=== PATIENT | male | born 1970 | race African-American/Black ===

== ENCOUNTER → 2017-06-24 | Outpatient (CLI) | payer OTHER ==
[2014-05-19 09:15] VITALS: BP 134/74
[~2017-06-24] MED LIST: ACYC200C PO; SIMV40TA3 PO; TRAM50TA PO
--- NOTE | 2017-06-24 09:05 | KCIC ---
MRI Lumbar Spine without contrast History: Right lumbar radiculopathy, low back pain into the right leg, numbness in the feet, previous surgery Technique: Multiplanar, multi sequential noncontrast MR imaging was performed of the lumbar spine. Contrast: None Comparison: June 16, 2014 Findings: Lumbar vertebral body stature is preserved. There is minimal posterior subluxation L3 relative L4-L5 relative S1. Conus terminates at L1-2. There are posterior and anterior annular tears L3-4, posterior annular tears L4-5 and L5-S1. There is more advanced degenerative disc disease L5-S1, minimally at L4-5 and L3-4. L3-4 degenerative disc disease is somewhat greater than previously. There is no significant marrow edema. L3-L4: There is minimal disc osteophyte complex, superimposed minimal bulge greater than previously. Neural foramina and spinal canal are overall adequate. L4-L5: There is disc osteophyte complex and superimposed shallow bulge/protrusion. There is mild indentation upon the ventral thecal sac somewhat greater in the far lateral recesses bilaterally. There is overall mild narrowing of the far lateral recess laterally, overall similar. Neural foramina are adequate. L5-S1: There is disc osteophyte complex and superimposed bulge/protrusion greatest centrally with indentation upon the ventral thecal sac, near the descending S1 nerve roots without displacement. There is also a small focus of signal abnormality in the left lateral recess above the intervertebral disc space on the order of 4 to 5 mm transverse by 3 to 4 mm AP by 5 mm CC not as apparent on the previous exam. This does not result in significant neural impingement. There is right laminectomy defect present. Neural foramina are overall adequate. Impression: 1. There is advanced degenerative disc disease at L5-S1, to a lesser degree at L4-5 and L3-4 although somewhat progressed at L3-4 since previous 2013 exam. There is mild narrowing of the far lateral recesses bilaterally at L4-5 with bulge/protrusion near the descending L5 nerve roots. Bulge/protrusion at L5-S1 is near descending S1 nerve roots without displacement. 2. There is a small focus of apparently extradural signal abnormality above the L5-S1 intervertebral disc space level in the left lateral recess without neural impingement. This may be due to a small extruded or sequestered disc fragment, considered more likely than small mass. Electronically signed by: Arsenio Deras MD (06/24/2017 9:02 AM) [facility]
== END | disposition home or self-care (01) ==
LOC: KCIC MRI 08:05
PROVIDERS: ATTEND Anesthesiology
DX: M51.17 Intervertebral disc disorders with radiculopathy, lumbosacral region (principal); M51.37 Other intervertebral disc degeneration, lumbosacral region
CPT/HCPCS: 72148

== ENCOUNTER → 2017-09-11 | Outpatient (CLI) | payer OTHER ==
[2014-05-19 09:15] VITALS: BP 134/74
[~2017-09-11] MED LIST changes: +CELE200C PO; +CYCL10TA2 PO; +FLUT9.9S NS; +IBUP-1060 PO; +OMEG1CAP6 PO; +OMEP20CA9 PO; +SIMV40TA PO; +VALA500T PO
== END | disposition home or self-care (01) ==
LOC: SURGPAT 14:17
PROVIDERS: ATTEND Neurological Surgery
DX: Z01.818 Encounter for other preprocedural examination (principal); M54.16 Radiculopathy, lumbar region; Z98.890 Other specified postprocedural states
CPT/HCPCS: 36415; 85610; 85730; 87641

== ENCOUNTER 2017-09-24 07:05 | Day surgery (SDC) | payer OTHER ==
[~2017-09-24] VITALS: Ht 185.4 cm; Wt 117.9 kg
[~2017-09-24 07:05] MED LIST changes: +BACITRACIN 50,000 UNIT in IV NORMAL SALINE 1000ML BAG 1,000 ML IRR ONE; +HYDROmorphone 2 MG/ML VIAL IV PRN; +IV RINGERS,LACTATED 1000ML 1,000 ML IV SCH; +LIDOCAINE 1% PF 2 ML VIAL. ID PRN; +MORPHINE SULFATE 4 MG/ML DISP.SYRIN. IV PRN; +ONDANSETRON PF 4 MG/2 ML VIAL. IV PRN; +PROCHLORPERAZINE 10 MG/2 ML VIAL. IV PRN; +fentaNYL PF VIAL 100 MCG/2 ML VIAL IV PRN
[2017-09-24] MEDS ORDERED: GELATIN SPONGE SIZE 100. ONE (07:47)
[2017-09-24] MEDS ORDERED: THROMBIN TOPICAL 20,000 UNIT SPRAY.SYRN KIT TP ONE (07:48)
[2017-09-24] MEDS ORDERED: LIDOCAINE 1%/EPI 1:100,000 20 ML VIAL. ONE (07:48)
[2017-09-24] MEDS ORDERED: BUPIVACAINE MPF 0.5% 30 ML VIAL. ONE (07:48)
[2017-09-24] MEDS ORDERED: PROPOFOL 100 ML IV ONE (08:01)
[2017-09-24] MEDS ORDERED: 0.9 % SODIUM CHLORIDE 50 ML VIAL. IJ ONE (08:07)
[2017-09-24] MEDS ORDERED: fentaNYL PF VIAL 100 MCG/2 ML VIAL ONE ×2 (08:07→10:37)
[2017-09-24] MEDS ORDERED: LIDOCAINE 2% PF Vial for OR 5 ML VIAL. ONE (08:07)
[2017-09-24] MEDS ORDERED: DEXAMETHASONE SOD PHOS 20 MG/5 ML VIAL. ONE (08:07)
[2017-09-24] MEDS ORDERED: PROPOFOL 20 ML IV ONE (08:07)
[2017-09-24] MEDS ORDERED: ONDANSETRON PF 4 MG/2 ML VIAL. ONE (08:07)
[2017-09-24] MEDS ORDERED: NEOSTIGMINE 10 MG/10 ML VIAL. ONE (08:07)
[2017-09-24] MEDS ORDERED: MIDAZOLAM HCL/PF 2 MG/2 ML VIAL. ONE (08:08)
[2017-09-24] MEDS ORDERED: GLYCOPYRROLATE 1 MG/5 ML VIAL. ONE (08:08)
[2017-09-24] MEDS ORDERED: ROCURONIUM 50 MG/5 ML VIAL. ONE (08:08)
[2017-09-24] MEDS ORDERED: REMIFENTANIL 2 MG VIAL. IV ONE (08:08)
[2017-09-24] MEDS ORDERED: DESFLURANE > 120 MINUTES IH ONE (08:55)
[2017-09-24] MEDS ORDERED: PHENYLEPHRINE 10 MG/ML VIAL. ONE (09:17)
--- NOTE | 2017-09-24 11:04 | PDOC ---
BRIEF OPERATIVE NOTE Date: Sep 24, 2017 Pre-Op Diagnosis lumbar disk herniation, lumbar radiculopathy Post-Op Diagnosis same Procedure Performed right L4-5 hemilaminotomy with discectomy [address] Medical Detail Representative none Anesthesia Type: General Blood Loss 25mL Specimens Obtained disk and decompression Findings prominent disk herniation right L4-5 with mass effect on the adjacent neural elements, neuromonitoring potentials improved compared to baseline at completion of procedure Complications none apparent SHYAM CALDERON MD Sep 24, 2017 11:04
--- NOTE | 2017-09-24 11:07 | DISCH ---
DISCHARGE INSTRUCTIONS Condition on Discharge Condition on Discharge: Stable Activity After Discharge Activity Instructions for Disc: Avoid exertion, Progressive ambulation, Other, see below (avoid strenuous activity, avoid excess twisting or bending, avoid lifting more than 10 lbs) Lifting Instructions after Dis: Do not lift >10 pounds Wound Incision Care Wound/Incision Care: Ice to area for comfort, Other, see below (keep incision clean and dry; do not soak, scrub, or submerge incision; may remove dressing day three after surgery) Contacting the after DC Call your doctor for: Concerns you may have Follow-Up Follow up with: Dr. Calderon in two weeks [phone] SHYAM CALDERON MD Sep 24, 2017 11:07
[2017-09-24] MEDS: fentaNYL PF VIAL 100 MCG/2 ML VIAL IV PRN ×4 (11:19→11:53)
[2017-09-24] MEDS ORDERED: METH-38 PO (11:26)
[2017-09-24] MEDS ORDERED: OXYC-323 PO (11:26)
[2017-09-24] MEDS ORDERED: SENN1TAB7 PO (11:28)
[2017-09-24] MEDS ORDERED: oxyCODONE/APAP 5/325 1 TAB TABLET PO ONE (12:00)
[2017-09-24] MEDS ORDERED: SCOPOLAMINE 1.5MG PATCH. TD ONE (12:34)
[2017-09-24] MEDS ORDERED: SCOPOLAMINE 1.5MG PATCH. TD PRN (12:45)
[2017-09-24 13:00] VITALS: BP 145/67
--- NOTE | 2017-09-27 14:57 | PATHOLOGY ---
PATHOLOGY REPORT * * * * * * * * FINAL DIAGNOSIS: Segments of fibrocartilaginous and fibroadipose tissue and bone, lumbar disc and decompression: - Degenerative changes of fibrocartilaginous tissue. COMMENT: There is no evidence of an acute inflammatory process or malignancy. (JPM:pit; 09/27/2017) REPORT ELECTRONICALLY SIGNED BY: Carlos Ivey M.D. DATE/TIME: 09/27/2017 14:57 * * * * * * * * GROSS PATHOLOGY: Received in formalin labeled "Justo Melendez, lumbar disc and decompression," are multiple segments of lake-white rubbery and gritty tissue measuring 4.0 x 1.5 x 0.4 cm in aggregate dimensions with admixed calcified tissue. The tissue is submitted representatively in cassette A1. (SDY; 09/25/2017) INITIAL CPT CODE(S): A; 66199 Professional services performed [place] [place] [address] Technical services performed by [facility] at [address] [place] [address]. SPECIMEN(S) RECEIVED: A.Lumbar disc and decompression CLINICAL HISTORY: Lumbar spondylosis, radiculopathy PATIENT: JUSTO MELENDEZ SR /AGE: 11 1970 (Age: 47) PATIENT #: [id number] ALT CASE #: SPECIMEN COLLECTION DATE: 09/24/2017 SPECIMEN RECEIVED DATE: 09/24/2017 [facility] - [address] [place] [address] - PHONE: [phone] * * * END OF REPORT * * *
--- NOTE | 2017-10-01 10:25 | OP ---
DATE OF SURGERY: 09/24/2017 SURGEON: Alverto Calderon MD. HEALTH ANALYTICS CONSULTANT: None. PREOPERATIVE DIAGNOSES: Lumbar spondylosis, lumbar disk herniation, lumbar radiculopathy. POSTOPERATIVE DIAGNOSES: Lumbar spondylosis, lumbar disk herniation, lumbar radiculopathy. ANESTHESIA: General. COMPLICATIONS: None. PROCEDURE: Right lumbar 4-5 hemilaminotomy with discectomy with intraoperative use of microscope and intraoperative neuromonitoring. INDICATIONS FOR THE PROCEDURE: The patient is a 47-year-old gentleman who presented with low back pain and predominately right lower extremity pain. He has had no significant benefit from nonsurgical treatments. It was noted that there is a prominent disk bulge at L4-L5 with right lateral recess stenosis and mass effect on the adjacent neural elements. It was felt that he would potentially benefit from surgical decompression of this. DESCRIPTION OF PROCEDURE: After informed consent was obtained, the patient was brought into the operating room. He was placed under general anesthesia, was placed in the prone position on the Quinton table. All pressure points were checked and padded appropriately. Lumbar region was prepped and draped in the usual sterile fashion. Fluoroscopy was utilized to localize an appropriate incision location and a vertical incision centered over the region of lumbar 4-5 was made with a 10 blade scalpel. Monopolar electrocautery was utilized to dissect the avascular midline to the spinous processes at lumbar 4-5 and rightward across the lamina at this location. Level was verified with fluoroscopy again prior to the initiation of decompression. A right lumbar 4-5 hemilaminotomy was performed with a pneumatic drill as well as a Kerrison rongeur. The underlying ligament was gently dissected free from the neural elements with a blunt nerve hook and a Treasure and subsequently removed with a Kerrison rongeur. The neural elements were noted to be under some pressure from a prominent annulus. They were gently retracted medially and annulotomy was performed with an 11 blade scalpel. A significant amount of disk material emerged under pressure and this was removed in a piecemeal fashion with a pituitary rongeur. Additional disk material was gently teased posterolaterally with a blunt nerve hook and removed with a pituitary rongeur. Upon completion of decompression and discectomy, the neural elements were noted to be very well decompressed. This was verified with direct visualization as well as gentle palpation with a Michaela and a blunt nerve hook. It was also noted that neuromonitoring potentials were improved compared to baseline upon completion of the decompression. Pristine hemostasis was achieved with FloSeal, cottonoids, and some use of bipolar electrocautery. The wound was generously irrigated with antibiotic irrigation prior to the final closure. The muscles and fascia were then reapproximated with 0 Vicryl in a simple interrupted fashion. Subcutaneous tissues reapproximated with 2-0 Vicryl in interrupted inverted fashion. Skin was reapproximated with 4-0 Vicryl in a running subcuticular fashion. Of note, the hemilaminotomy and discectomy were performed utilizing microscope visualization. At the end of procedure, all needle and sponge counts were correct. The patient was subsequently extubated in the operating room and taken to recovery in stable condition. There were no intraprocedural complications apparent. ALVERTO CALDERON MD DR: LIV/arminda JOB#: [id number] / [id number] DEWEY
== END 2017-09-24 13:46 | disposition home or self-care (01) ==
LOC: SURG 07:05
PROVIDERS: ATTEND Neurological Surgery
DX: M51.16 Intervertebral disc disorders with radiculopathy, lumbar region (principal); M47.896 Other spondylosis, lumbar region; E78.00 Pure hypercholesterolemia, unspecified; E66.9 Obesity, unspecified; K21.9 Gastro-esophageal reflux disease without esophagitis
CPT/HCPCS: 63030; 76000; 88304; 97162; 97530; G8978; G8979; G8980; J0690; J0780; J1100; J2250; J2405; J2704; J2710; J3010; J3490; J7030; J7120; J2270; J2001

== ENCOUNTER 2018-07-16 14:46 | Emergency (ER) | payer OTHER ==
[~2018-07-16] VITALS: Ht 185.4 cm; Wt 117.9 kg
[~2018-07-16 14:46] MED LIST changes: -BACITRACIN 50,000 UNIT in IV NORMAL SALINE 1000ML BAG 1,000 ML IRR ONE; -HYDROmorphone 2 MG/ML VIAL IV PRN; -IV RINGERS,LACTATED 1000ML 1,000 ML IV SCH; -LIDOCAINE 1% PF 2 ML VIAL. ID PRN; +METH-38 PO; -MORPHINE SULFATE 4 MG/ML DISP.SYRIN. IV PRN; -ONDANSETRON PF 4 MG/2 ML VIAL. IV PRN; +OXYC-323 PO; -PROCHLORPERAZINE 10 MG/2 ML VIAL. IV PRN; +SENN1TAB8 PO; -fentaNYL PF VIAL 100 MCG/2 ML VIAL IV PRN
[2018-07-16 15:05] VITALS: BP 139/78
[2018-07-16] MEDS ORDERED: LIDOCAINE WITH 8.4% SOD BICARB 3 ML DISP.SYRIN. INJ ONE (15:30)
[2018-07-16] MEDS ORDERED: HYDROcodone/APAP 5/325MG 1 TAB TABLET PO ONE (15:30)
[2018-07-16] MEDS ORDERED: DIPHTH,PERTUSS(ACELL),TET TOX 0.5 ML DISP.SYRIN. VAX IM ONE (15:30)
--- NOTE | 2018-07-16 16:05 | RAD ---
Left tibia and fibula radiograph 07/16/2018 3:33 PM INDICATION: Laceration on anterior portion of the tibia and fibula. COMPARISON: None available. TECHNIQUE: 3 views of the left anterior tibia and fibula are provided. FINDINGS: There is no acute fracture or dislocation. Bone mineralization is within normal limits. Joint spaces are maintained. Regional soft tissues are within normal limits. There is no soft tissue gas or osseous erosion. IMPRESSION: No acute fracture or dislocation. Electronically signed by: Juanita Souza MD (07/16/2018 4:02 PM) [facility]
[2018-07-16] MEDS ORDERED: HYDR-971 PO (17:08)
--- NOTE | 2018-07-16 17:13 | PHYS DOC ---
Past Medical History Past Medical History: High Cholesterol Past Surgical History: Other Additional Past Surgical Histo: herniated disc repair Alcohol Use: Occasionally Drug Use: None Adult General Chief Complaint Chief Complaint: LACERATION/AVULSION HPI HPI Patient is a 47 year old male who presents with was at work in part his work truck on it sounded hill when he went to step up onto the door board to get up into his truck his foot slipped and it cut his left meza. This happened at 1425 today. Patient states his last tetanus it been over 5 years. Patient rates his pain an 8 out of 10. Bleeding is controlled. Review of Systems Review of Systems Constitutional: Denies fever or chills [] Eyes: Denies change in visual acuity, redness, or eye pain [] HENT: Denies nasal congestion or sore throat [] Respiratory: Denies cough or shortness of breath [] Cardiovascular: No additional information not addressed in HPI [] GI: Denies abdominal pain, nausea, vomiting, bloody stools or diarrhea [] : Denies dysuria or hematuria [] Musculoskeletal: Denies back pain or joint pain [] Integument: Left meza 4cm laceration. Denies rash or skin lesions [] Neurologic: Denies headache, focal weakness or sensory changes [] Endocrine: Denies polyuria or polydipsia [] All other systems were reviewed and found to be within normal limits, except as documented in this note. Current Medications Current Medications Current Medications Medications (Trade) Dose Ordered Sig/Caroline Start Time Stop Time Status Last Admin Dose Admin Acetaminophen/ Hydrocodone Bitart (Lortab 5/325) 1 tab 1X ONCE 07/16/18 15:30 07/16/18 15:31 DC 07/16/18 15:32 1 TAB Diphtheria/ Tetanus/Acell Pertussis (Boostrix) 0.5 ml ONCE ONCE 07/16/18 15:30 07/16/18 15:31 DC 07/16/18 15:33 0.5 ML Lidocaine/Sodium Bicarbonate (Buffered Lidocaine 1%) 6 ml 1X ONCE 07/16/18 15:30 07/16/18 15:31 DC 07/16/18 15:34 6 ML Allergies Allergies Allergies Coded Allergies Type Severity Reaction Last Updated Verified No Known Drug Allergies 09/24/17 No Physical Exam Physical Exam Constitutional: Well developed, well nourished, no acute distress, non-toxic appearance. [] HENT: Normocephalic, atraumatic, bilateral external ears normal, oropharynx moist, no oral exudates, nose normal. [] Eyes: PERRLA, EOMI, conjunctiva normal, no discharge. [] Neck: Normal range of motion, no tenderness, supple, no stridor. [] Cardiovascular:Heart rate regular rhythm, no murmur [] Lungs & Thorax: Bilateral breath sounds clear to auscultation [] Abdomen: Bowel sounds normal, soft, no tenderness, no masses, no pulsatile masses. [] Skin: Left meza laceration that is gaping. Warm, dry, no erythema, no rash. [] Back: No tenderness, no CVA tenderness. [] Extremities: No tenderness, no cyanosis, no clubbing, ROM intact, no edema. [] Neurologic: Alert and oriented X 3, normal motor function, normal sensory function, no focal deficits noted. [] Psychologic: Affect normal, judgement normal, mood normal. [] Current Patient Data Vital Signs Vital Signs Date Time Temp Pulse Resp B/P (MAP) Pulse Ox O2 Delivery O2 Flow Rate FiO2 07/16/18 15:05 98.2 82 18 139/78 (98) 97 Room Air 98.2 EKG EKG [] Radiology/Procedures Radiology/Procedures tib/fib[] Impressions: No acute findings and read by Dr Peng Course & Med Decision Making Course & Med Decision Making Patient is a 47 year old male who presents with was at work in part his work truck on it [facility] when he went to step up onto the door board to get up into his truck his foot slipped and it cut his left meza. This happened at 1425 today. Patient has a 4cm laceration to left meza that is gaping with scant blood drainage. Wound is cleaned out with Betadine and normal saline. Patient states his last tetanus it been over 5 years. Patient rates his pain an 8 out of 10. Bleeding is controlled. Patient has no known drug allergies and denies any past medical history. Is given a Boostrix shot. Patient to be discharged home with a prescription for [place]. Tib/Fib shows no acute fractures. 9 Sutures using 3-0 Ethicon. Patient educated about signs of infection and to return in 5-7days for suture removal. Laceration Repair by me: Anesthesia: 1% lidocaine locally Location: Left meza Tendon/Joint/Nerves: No injury Foreign body: None detected after copious irrigation and exploration Technique: 1 mattress and then 8 Simple Interrupted Sutures Complexity: No subcutaneous sutures/mucosal repair/edge excision Post Closure Length: 4 cm Patient's bleeding was easily controlled in the department and there is no indication of anemia. No evidence of compartment syndrome, neurologic injury, vascular injury, open joint, tendon laceration, or foreign body. Patient is appropriate for outpatient follow up. 48 hour wound check. Scar minimization instructions given. [] Dragon Disclaimer Dragon Disclaimer This electronic medical record was generated, in whole or in part, using a voice recognition dictation system. Departure Departure Impression: Primary Impression: Laceration Disposition: 01 HOME, SELF-CARE Condition: STABLE Referrals: GIULIANA NANCE MD (PCP) Patient Instructions: Laceration Care, Adult Additional Instructions: Return in 5 to seven days for suture removal. Take Ibuprofen for pain control and [place]. Scripts Hydrocodone/Apap 5-325 (NORCO 5-325 TABLET) 1 Each Tablet 1 TAB PO PRN Q6HRS PRN for PAIN, #6 TAB 0 Refills Prov: OSBALDO PÉREZ APRN 07/16/18 OSBALDO PÉREZ APRN Jul 16, 2018 17:13
== END 2018-07-16 17:30 | disposition home or self-care (01) ==
LOC: ER 14:46
DX: S81.812A Laceration without foreign body, left lower leg, initial encounter (principal); E78.00 Pure hypercholesterolemia, unspecified; Y28.8XXA Contact with other sharp object, undetermined intent, initial encounter; Y93.89 Activity, other specified; Y92.89 Other specified places as the place of occurrence of the external cause; Y99.8 Other external cause status
CPT/HCPCS: 12002; 73590; 90471; 90715; 99284-25

== ENCOUNTER 2018-07-30 10:51 | Emergency (ER) | payer OTHER ==
[~2018-07-30] VITALS: Ht 185.4 cm; Wt 117.9 kg
[~2018-07-30 10:51] MED LIST changes: +HYDR-971 PO
--- NOTE | 2018-07-30 11:40 | PHYS DOC ---
Past Medical History Past Medical History: High Cholesterol Past Surgical History: Other Additional Past Surgical Histo: herniated disc repair,SKIN GRAFT Alcohol Use: Occasionally Drug Use: None Adult General Chief Complaint Chief Complaint: WOUND CHECK [facility] HPI Patient is a 47 year old male who presents with coming from [facility] who had been doing his after laceration care to his left meza that happened 2 weeks ago. Patient states that 5 days after the laceration the nurse at this place removed his stitches and gave him an antibiotic. Patient states that after stitches removed is when the wound began to look infected and become a bit swollen. Patient states it's been draining some purulent fluid. That is been following up with her and that he was given an antibiotic. Patient states he has no pain and has not been running a fever. Review of Systems Review of Systems Constitutional: Denies fever or chills [] Eyes: Denies change in visual acuity, redness, or eye pain [] HENT: Denies nasal congestion or sore throat [] Respiratory: Denies cough or shortness of breath [] Cardiovascular: No additional information not addressed in HPI [] GI: Denies abdominal pain, nausea, vomiting, bloody stools or diarrhea [] : Denies dysuria or hematuria [] Musculoskeletal: Denies back pain or joint pain [] Integument: Denies rash. Left meza infected laceration [] Neurologic: Denies headache, focal weakness or sensory changes [] Endocrine: Denies polyuria or polydipsia [] All other systems were reviewed and found to be within normal limits, except as documented in this note. Allergies Allergies Allergies Coded Allergies Type Severity Reaction Last Updated Verified No Known Drug Allergies 09/24/17 No Physical Exam Physical Exam Constitutional: Well developed, well nourished, no acute distress, non-toxic appearance. [] HENT: Normocephalic, atraumatic, bilateral external ears normal, oropharynx moist, no oral exudates, nose normal. [] Eyes: PERRLA, EOMI, conjunctiva normal, no discharge. [] Neck: Normal range of motion, no tenderness, supple, no stridor. [] Cardiovascular:Heart rate regular rhythm, no murmur [] Lungs & Thorax: Bilateral breath sounds clear to auscultation [] Abdomen: Bowel sounds normal, soft, no tenderness, no masses, no pulsatile masses. [] Skin: Warm, dry, no erythema, no rash. Left meza infected laceration with purulent drainage. [] Back: No tenderness, no CVA tenderness. [] Extremities: No tenderness, no cyanosis, no clubbing, ROM intact, no edema. [] Neurologic: Alert and oriented X 3, normal motor function, normal sensory function, no focal deficits noted. [] Psychologic: Affect normal, judgement normal, mood normal. [] Current Patient Data Vital Signs Vital Signs Date Time Temp Pulse Resp B/P (MAP) Pulse Ox O2 Delivery O2 Flow Rate FiO2 07/30/18 12:23 75 16 140/91 (107) 98 Room Air 07/30/18 11:13 97.4 97.4 EKG EKG [] Radiology/Procedures Radiology/Procedures Left Tibula Fibula Impressions: [facility] [address] [place] [address] IMAGING REPORT Signed PATIENT: FLETCHER STANTON ACCOUNT: [id number] : 1970 LOCATION: ER AGE: 47 SEX: M EXAM STATUS: REG ER ORD. PHYSICIAN: OSBALDO PÉREZ APRN REASON: infected wound PROCEDURE: TIBIA FIBULA LEFT History: Laceration to anterior mid lower leg. The stitches removed 2 weeks ago. Infection. Comparison: None. Findings: AP and lateral views of the left tibia and fibula. Most distal aspect of the tibia and fibula were excluded from the images. No acute osseous abnormality is identified. There is evidence of soft tissue thickening of the anterior and mid lower leg. On the lateral view, anterior to the mid tibial shaft, there is a 1.4 cm elongated, mildly radiodense linear focus, uncertain if this represents foreign body versus artifact on image receptor. Impression: 1. Soft tissue thickening of the anterior and mid lower leg. 2. 1.4 cm mildly radiodense linear focus involving the anterior lower leg, anterior to the mid tibial shaft. It is uncertain if this represents artifact on image receptor versus foreign body. Electronically signed by: Javier Bower MD (07/30/2018 11:47 AM) [facility] DICTATED and SIGNED BY: JAVIER BOWER MD DATE: 07/30/18 1144 Course & Med Decision Making Course & Med Decision Making Patient is a 47 year old male who presents with coming from [facility] who had been doing his after laceration care to his left meza that happened 2 weeks ago. Patient states that 5 days after the laceration the nurse at this place removed his stitches and gave him on Augmentin antibiotic. Patient states that after stitches removed is when the wound began to look infected and become swollen. Patient states it's been draining some purulent fluid. Patient has been following up with [facility] and he was given an antibiotic Augmentin. Patient states he has no pain and has not been running a fever. Examination the laceration is open and draining purulent fluid with 1+ edema but no redness or streaking. Patient is afebrile. The wound is flushed out with Betadine and 1L sterile water. A Xeroform dressing is applied. Patient is told that he must follow-up with wound care to make sure that the wound is healing properly and infection does not get worse. Patient states the wound is healing and the swelling is much improved. I did have Dr. Olivia look at the wound. We did tell the patient that this area of which the wound is located does take longer to heal and that the stitches probably should not have been removed quickly. Patient will be given a prescription for Bactrim to take for 10 days but patient is to continue taking the Augmentin as prescribed. Patient is to make sure he keeps the wound clean and dry and covered. Pedal pulses are present in bilateral legs. X-ray show no osteomyelitis. I have checked the wound again for any foreign body with tweezer and nothing is seen or felt. Patient is discharged home in stable condition. Patient to follow-up with wound care within the next 2-3 days. Ne: I saw this patient. Patient is a poorly healing pretibial wound. ( Tissue taking after 5 days which may have been slightly premature. He does have some exudate of drainage noted the x-ray mid-level did not appreciate a foreign body on examination. Patient was given additional antibiotics and was given referral to care clinic follow-up for this pretibial wound which may take up to a month to heal. [] Dragon Disclaimer Dragon Disclaimer This electronic medical record was generated, in whole or in part, using a voice recognition dictation system. Departure Departure Impression: Primary Impression: Wound infection Disposition: 01 HOME, SELF-CARE Condition: STABLE Referrals: GIULIANA NANCE MD (PCP) Patient Instructions: Wound Infection Additional Instructions: Follow up with Wound care within 1-2 days. Continue taking Augmentin antibiotic and also take Bactrim antibiotic as prescribed. Scripts Sulfamethoxazole/Trimethoprim (BACTRIM DS TABLET) 1 Each Tablet 1 TAB PO BID, #20 TAB Prov: OSBALDO PÉREZ APRN 07/30/18 OSBALDO PÉREZ APRN Jul 30, 2018 11:40 LUZ MARINA OLIVIA MD Jul 30, 2018 13:54
[2018-07-30] MEDS ORDERED: SULF1TAB24 PO (11:49)
--- NOTE | 2018-07-30 11:50 | RAD ---
History: Laceration to anterior mid lower leg. The stitches removed 2 weeks ago. Infection. Comparison: None. Findings: AP and lateral views of the left tibia and fibula. Most distal aspect of the tibia and fibula were excluded from the images. No acute osseous abnormality is identified. There is evidence of soft tissue thickening of the anterior and mid lower leg. On the lateral view, anterior to the mid tibial shaft, there is a 1.4 cm elongated, mildly radiodense linear focus, uncertain if this represents foreign body versus artifact on image receptor. Impression: 1. Soft tissue thickening of the anterior and mid lower leg. 2. 1.4 cm mildly radiodense linear focus involving the anterior lower leg, anterior to the mid tibial shaft. It is uncertain if this represents artifact on image receptor versus foreign body. Electronically signed by: Javier Ash MD (07/30/2018 11:47 AM) [facility]
[2018-07-30 12:23] VITALS: BP 140/91
== END 2018-07-30 12:23 | disposition home or self-care (01) ==
LOC: ER 10:51
DX: T81.4XXA Infection following a procedure, initial encounter (principal); E78.00 Pure hypercholesterolemia, unspecified; X58.XXXA Exposure to other specified factors, initial encounter; Y93.89 Activity, other specified; Y92.89 Other specified places as the place of occurrence of the external cause; Y99.8 Other external cause status
CPT/HCPCS: 73590; 99284

== ENCOUNTER → 2018-08-04 | Outpatient (CLI) | payer OTHER ==
[2018-07-30 12:23] VITALS: BP 140/91
[~2018-08-04] MED LIST changes: +SULF1TAB24 PO
== END | disposition home or self-care (01) ==
LOC: PMGWOUND 09:15
PROVIDERS: ATTEND Emergency Medicine Undersea and Hyperbaric Medicine
DX: T81.31XA Disruption of external operation (surgical) wound, not elsewhere classified, initial encounter (principal); L97.222 Non-pressure chronic ulcer of left calf with fat layer exposed; E78.00 Pure hypercholesterolemia, unspecified; E78.5 Hyperlipidemia, unspecified; K21.9 Gastro-esophageal reflux disease without esophagitis; E66.9 Obesity, unspecified; Z68.34 Body mass index [BMI] 34.0-34.9, adult; Y83.8 Other surgical procedures as the cause of abnormal reaction of the patient, or of later complication, without mention of misadventure at the time of the procedure; Y92.89 Other specified places as the place of occurrence of the external cause
CPT/HCPCS: 97597

== ENCOUNTER → 2018-08-11 | Outpatient (CLI) | payer OTHER ==
[2018-07-30 12:23] VITALS: BP 140/91
== END | disposition home or self-care (01) ==
LOC: PMGWOUND 08:53
PROVIDERS: ATTEND Emergency Medicine Undersea and Hyperbaric Medicine
DX: T81.31XD Disruption of external operation (surgical) wound, not elsewhere classified, subsequent encounter (principal); L97.222 Non-pressure chronic ulcer of left calf with fat layer exposed; E78.5 Hyperlipidemia, unspecified; E78.00 Pure hypercholesterolemia, unspecified; K21.9 Gastro-esophageal reflux disease without esophagitis; E66.9 Obesity, unspecified; Z68.34 Body mass index [BMI] 34.0-34.9, adult; Y83.8 Other surgical procedures as the cause of abnormal reaction of the patient, or of later complication, without mention of misadventure at the time of the procedure
CPT/HCPCS: 11042

== ENCOUNTER → 2018-08-18 | Outpatient (CLI) | payer OTHER ==
[2018-07-30 12:23] VITALS: BP 140/91
== END | disposition home or self-care (01) ==
LOC: PMGWOUND 09:13
PROVIDERS: ATTEND Emergency Medicine Undersea and Hyperbaric Medicine
DX: T81.31XD Disruption of external operation (surgical) wound, not elsewhere classified, subsequent encounter (principal); L97.222 Non-pressure chronic ulcer of left calf with fat layer exposed; E78.5 Hyperlipidemia, unspecified; E78.00 Pure hypercholesterolemia, unspecified; K21.9 Gastro-esophageal reflux disease without esophagitis; E66.9 Obesity, unspecified; Z68.34 Body mass index [BMI] 34.0-34.9, adult; Y83.8 Other surgical procedures as the cause of abnormal reaction of the patient, or of later complication, without mention of misadventure at the time of the procedure
CPT/HCPCS: 99214; G0463

== ENCOUNTER → 2018-08-25 | Outpatient (CLI) | payer OTHER ==
[2018-07-30 12:23] VITALS: BP 140/91
== END | disposition home or self-care (01) ==
LOC: PMGWOUND 08:42
PROVIDERS: ATTEND Emergency Medicine Undersea and Hyperbaric Medicine
DX: T81.31XD Disruption of external operation (surgical) wound, not elsewhere classified, subsequent encounter (principal); L97.222 Non-pressure chronic ulcer of left calf with fat layer exposed; E78.5 Hyperlipidemia, unspecified; K21.9 Gastro-esophageal reflux disease without esophagitis; G25.81 Restless legs syndrome; E78.00 Pure hypercholesterolemia, unspecified; E66.9 Obesity, unspecified; Z68.34 Body mass index [BMI] 34.0-34.9, adult; Y83.8 Other surgical procedures as the cause of abnormal reaction of the patient, or of later complication, without mention of misadventure at the time of the procedure
CPT/HCPCS: 99214; G0463

== ENCOUNTER → 2018-09-02 | Outpatient (CLI) | payer OTHER | END | disposition home or self-care (01) | LOC: PMGWOUND 09:10 | PROVIDERS: ATTEND Emergency Medicine Undersea and Hyperbaric Medicine | DX: T81.31XD Disruption of external operation (surgical) wound, not elsewhere classified, subsequent encounter (principal); L97.222 Non-pressure chronic ulcer of left calf with fat layer exposed; E78.5 Hyperlipidemia, unspecified; G25.81 Restless legs syndrome; E78.00 Pure hypercholesterolemia, unspecified; E66.9 Obesity, unspecified; K21.9 Gastro-esophageal reflux disease without esophagitis; Z68.34 Body mass index [BMI] 34.0-34.9, adult; Y83.8 Other surgical procedures as the cause of abnormal reaction of the patient, or of later complication, without mention of misadventure at the time of the procedure | CPT/HCPCS: 99214; G0463 ==

== ENCOUNTER → 2018-09-09 | Outpatient (CLI) | payer OTHER | END | disposition home or self-care (01) | LOC: PMGWOUND 09:19 | PROVIDERS: ATTEND Emergency Medicine Undersea and Hyperbaric Medicine | DX: T81.31XD Disruption of external operation (surgical) wound, not elsewhere classified, subsequent encounter (principal); L97.222 Non-pressure chronic ulcer of left calf with fat layer exposed; E78.5 Hyperlipidemia, unspecified; E78.00 Pure hypercholesterolemia, unspecified; G25.81 Restless legs syndrome; K21.9 Gastro-esophageal reflux disease without esophagitis; E66.9 Obesity, unspecified; Z68.34 Body mass index [BMI] 34.0-34.9, adult; Y83.8 Other surgical procedures as the cause of abnormal reaction of the patient, or of later complication, without mention of misadventure at the time of the procedure | CPT/HCPCS: 99213 ==

== ENCOUNTER → 2019-01-29 | Outpatient (CLI) | payer OTHER ==
[~2019-01-29] MED LIST changes: +HYDR-3164 PO; -HYDR-971 PO; +OMEP20CA10 PO; -OMEP20CA9 PO; -OXYC-323 PO; +OXYC1TAB15 PO; +SENN-161 PO; -SENN1TAB8 PO
--- NOTE | 2019-01-29 11:00 | KCIC ---
EXAM: Bilateral knees, 3 views. HISTORY: Pain. COMPARISON: None. FINDINGS: 3 views of both knees are obtained. There is no fracture, dislocation or subluxation. There is enthesopathy along the superior left patella and a small benign osseous excrescence along the inferior right patella. There is no significant joint effusion. IMPRESSION: No acute osseous finding. Electronically signed by: Priscila Morgan MD (01/29/2019 10:57 AM) [facility]
== END | disposition home or self-care (01) ==
LOC: KCIC 08:27
PROVIDERS: ATTEND Physician Assistant Medical
DX: M17.12 Unilateral primary osteoarthritis, left knee (principal); M76.892 Other specified enthesopathies of left lower limb, excluding foot; M25.561 Pain in right knee
CPT/HCPCS: 73562